=== PATIENT | female | born 1985 | race Caucasian/White ===

== ENCOUNTER 2016-09-06 08:27 | Outpatient (CLI) | payer OTHER ==
[~2016-09-06] VITALS: Ht 157.5 cm; Wt 71.7 kg
[~2016-09-06 08:27] MED LIST: PRENAT PO
[2016-09-06 08:45] VITALS: Ht 157.5 cm; Wt 71.7 kg
[2016-09-06] MEDS ORDERED: LACTATED RINGER'S 1,000 ML IV SCH (09:00)
--- NOTE | 2016-09-06 10:21 | RADRPT ---
PROCEDURE: OB ultrasound for biophysical profile CLINICAL INDICATION: labor TECHNIQUE: Multiple sonographic images of the pelvis were obtained. Transabdominal views of the g ravid uterus are available for review. The images were reviewed on a PACS workstation. COMPARISON: None FINDINGS: breathing movement = 2/2 tone = 2/2 motion = 2/2 ELVIN = 2/2 ELVIN = 12.1 cm Single live intrauterine with cardiac activity of 140 bpm. position is cephal ic. The placenta is anterior. IMPRESSION: 1. Single live intrauterine gestation. 2. Biophysical profile = 8/8. 3. ELVIN = 12.1 cm. RPTAT: HH .Naomi Henry MD, MD Date Time Electronically viewed and signed by .Naomi Henry MD, on 09/06/2016 10:20 .G/
--- NOTE | 2016-09-06 11:31 | RADRPT ---
PROCEDURE: US OB. CLINICAL INDICATION: Size and dates TECHNIQUE: Multiple sonographic images of the pelvis were obtained. Transabdominal imaging only w as performed. The images were reviewed on a PACS workstation. COMPARISON: OB ultrasound dated 05/05/2016 FINDINGS: There is a single live intrauterine gestation. Cardiac activity is present with 152 beats per minut e. position is cephalic. Measurements were made in order to determine age. The results are as follows: BPD = 8.05 cm HC = 30.02 cm AC = 3.50 cm FL = 6.50 cm. Estimated gestational age of approximately 33 weeks 3 days. The estimated date of delivery is 10/22/2016. The EFW = 2292 g, 3.2 %ile. The placenta is anterior. There is no evidence for an abruption or placenta previa. There are no adnexal masses. IMPRESSION: 1. Single live intrauterine gestation of approximately 33 weeks 3 days, by ultrasound criteria. 2. The estimated date of delivery is 10/22/2016. The previous estimated date of delivery based on u ltrasound criteria from 05/05/2016 was 09/30/2016, with lower than expected interval growth. 3. The estimated weight is 2292 g, 3.2 %ile. RPTAT: HH .Naomi Henry MD, Date Time Electronically viewed and signed by .Naomi Henry MD, on 09/06/2016 11:30 .G/
--- NOTE | 2016-09-06 14:57 | PN ---
DATE: HISTORY: The patient is a G4, P1, at 36 weeks complaining of uterine contractions, leakage of fluid , no vaginal bleeding. Positive movement. Vital signs stable. Exam within normal limits. T he patient was closed and no significant change for greater than 3 hours. The patient desires vagin al without section and counseled per . The patient discharged home not in labor . ER precautions given. The patient is stable upon discharge. Dictated By: MACIE REYNOSO MD /NTS Conf#: [id number] DID#: [id number]
== END 2016-09-06 12:03 | disposition home or self-care (01) ==
LOC: OBT 08:27 → L-D 08:28 → OBT 12:03
PROVIDERS: ATTEND Specialist
DX: O62.9 Abnormality of forces of labor, unspecified (principal); Z3A.36 36 weeks gestation of pregnancy
CPT/HCPCS: 36415; 76815; 76818; 96360; 96361; J7120; Z7500; G0463